=== PATIENT | female | born 1975 | race Caucasian/White ===

== ENCOUNTER → 2019-05-04 09:45 | Outpatient (CLI) | payer MEDICARE, MEDICAID, SELFPAY ==
--- NOTE | 2019-05-04 09:51 | US_ITS ---
STUDY: ULTRASOUND BREAST - RIGHT REASON FOR EXAM: Female, 43 years old. Screening examination. Mammogram not able to be performed due to the patient''s physical condition. TECHNIQUE: Axial and longitudinal images of the RIGHT breast were performed with a high resolution ultrasound transducer. # OF IMAGES: 81 COMPARISON: None. FINDINGS: RIGHT Breast: There is a 3 mm x 3 mm x 3 mm cyst at the 8:00 position of the breast at 2 cm from the nipple. IMPRESSION: 3 mm x 3 mm x 3 mm cyst at the 8:00 position of the breast at 2 cm the nipple. ASSESSMENT CATEGORY: BIRADS Category 2: Benign. A letter regarding these results will be sent to the patient by the facility within 30 days. Electronically Signed: Michael Venessa, at 15:21 EST , Service support , STUDY: ULTRASOUND BREAST - LEFT REASON FOR EXAM: Female, 43 years old. Screening ultrasound due to patient''s inability for mammogram. TECHNIQUE: Axial and longitudinal images of the LEFT breast were performed with a high resolution ultrasound transducer. # OF IMAGES: 81 COMPARISON: None. FINDINGS: LEFT Breast: There is a 1.1 cm x 0.9 cm x 0.5 cm cyst at the 2:00 position of the breast at 2 cm from the nipple. Dilated retroareolar ducts. US/Breast Complete Bilateral IMPRESSION: 1.1 cm x 0.9 cm x 0.5 cm cyst at the 2:00 position of the breast at 2 cm from the nipple. Dilated retroareolar ducts. ASSESSMENT CATEGORY: BIRADS Category 2: Benign. A letter regarding these results will be sent to the patient by the facility within 30 days. Electronically Signed: Michael Clifford, at 15:22 EST , Service support ,
== END ==
PROVIDERS: PCP Family Medicine; Referring Provider Family Medicine; Visit Provider Family Medicine
DX: N60.01 Solitary cyst of right breast (principal)
CPT/HCPCS: 76641